=== PATIENT | female | born 1935 | race Caucasian/White ===

== ENCOUNTER 2021-09-04 15:50 | Inpatient (IN) | payer MEDICARE ==
[2021-09-04 17:22] LABS: #Basophils 0.1 thou/uL (0.0-0.2); #Lymphocytes 1.4 thou/uL (1.20-3.40); #Monocytes 0.9 thou/uL (0.11-0.59); #Neutrophils 11.7 thou/uL (1.40-6.50); %Basophils 0.5 % (0.0-1.0); %Eosinophils 0.4 % (0.0-10.0); %Lymphocytes 10.2 % (21.0-51.0); %Neutrophils 82.9 % (42.0-75.0); Mean Corpuscular Hemoglobin 30.8 pg (27.0-31.0); Mean Corpuscular Volume 96.4 fL (78.0-98.0); Mean Platelet Volume 7.3 fL (7.4-10.4); Platelet Count 244 thou/uL (130-400); RBC Distribution Width 11.8 % (11.5-14.5); Red Blood Cell (RBC) Count 4.53 mill/uL (4.20-5.40); White Blood Cell (WBC) Count 14.1 thou/uL (4.8-10.8)
[2021-09-04 17:48] LABS: ALT (SGPT) 16 U/L (8-55); AST (SGOT) 29 U/L (5-34); Albumin 4.5 g/dL (3.4-4.8); Alkaline Phosphatase 67 U/L (40-110); Anion Gap 16 mmol/L (10-20); BUN (Urea Nitrogen) 26 mg/dL (9.8-20.1); Bilirubin, Total 0.4 mg/dL (0.2-1.2); CK (CPK) 98 U/L (29-168); Calc. Creatinine Clearance 0 mL/min (70-130); Calcium 10.2 mg/dL (7.8-10.44); Carbon Dioxide 25 mmol/L (23-31); Chloride 104 mmol/L (98-107); Globulin 3.1 g/dL (2.4-3.5); Glucose 154 mg/dL (83-110); Potassium 4.6 mmol/L (3.5-5.1); Protein, Total 7.6 g/dL (5.8-8.1); Sodium 140 mmol/L (136-145)
[2021-09-04] MEDS ORDERED: Ondansetron PF 4 MG/2 ML Vial IVP PRN (20:24)
[2021-09-04] MEDS ORDERED: Promethazine HCl 25 MG/ML VIAL IM PRN (20:25)
[2021-09-04] MEDS ORDERED: Cyclobenzaprine 10 MG TAB PO PRN (20:27)
[2021-09-04] MEDS ORDERED: traMADol HCl 50 MG TAB PO PRN (20:27)
[2021-09-04] MEDS ORDERED: Acetaminophen 325 MG TAB PO SCH (20:30)
[2021-09-04] MEDS ORDERED: Morphine 4 MG/ML VIAL SLOW IVP PRN (21:23)
[2021-09-04] MEDS: Sodium Chloride 0.9% 1,000 ML IV SCH (22:15)
[2021-09-04] MEDS: Famotidine 20 MG TAB PO SCH (23:00)
[2021-09-04] MEDS: Ibuprofen 200 MG TAB PO SCH (23:19)
[2021-09-04] MEDS: Gabapentin 300 MG CAP PO SCH (23:19)
[2021-09-04] MEDS: Heparin 5,000 UNITS/ML VIAL SC SCH (23:20)
[2021-09-04] MEDS: Senokot S 8.6-50 MG TAB PO SCH (23:22)
[2021-09-05] MEDS: Acetaminophen 500 MG TAB PO SCH ×5 (00:51→23:52)
[2021-09-05] MEDS: traMADol HCl 50 MG TAB PO SCH ×2 (00:51→06:21)
[2021-09-05 03:35] VITALS: BMI 26.5
[2021-09-05 05:45] LABS: #Eosinphils 0.2 thou/uL (0.0-0.7); #Lymphocytes 2.8 thou/uL (1.20-3.40); #Monocytes 1.2 thou/uL (0.11-0.59); #Neutrophils 5.5 thou/uL (1.40-6.50); %Basophils 0.5 % (0.0-1.0); %Eosinophils 1.8 % (0.0-10.0); %Lymphocytes 28.3 % (21.0-51.0); %Monocytes 12.6 % (0.0-10.0); %Neutrophils 56.8 % (42.0-75.0); Hemoglobin 12.1 g/dL (12.0-16.0); Mean Corpuscular HGB CONC 32.1 g/dL (32.0-36.0); Mean Corpuscular Hemoglobin 30.7 pg (27.0-31.0); Mean Corpuscular Volume 95.9 fL (78.0-98.0); Mean Platelet Volume 7.6 fL (7.4-10.4); Platelet Count 222 thou/uL (130-400); RBC Distribution Width 11.8 % (11.5-14.5); Red Blood Cell (RBC) Count 3.95 mill/uL (4.20-5.40); White Blood Cell (WBC) Count 9.7 thou/uL (4.8-10.8)
[2021-09-05 06:00] LABS: Anion Gap 12 mmol/L (10-20); BUN (Urea Nitrogen) 20 mg/dL (9.8-20.1); Calc. Creatinine Clearance 41 mL/min (70-130); Calcium 9.4 mg/dL (7.8-10.44); Carbon Dioxide 24 mmol/L (23-31); Chloride 106 mmol/L (98-107); Glucose 106 mg/dL (83-110); Potassium 4.1 mmol/L (3.5-5.1); Sodium 138 mmol/L (136-145)
[2021-09-05 06:02] LABS: Phosphorus 2.7 mg/dL (2.3-4.7)
[2021-09-05] MEDS: Sodium Chloride 0.9% 1,000 ML IV SCH (06:21)
[2021-09-05] MEDS: Ibuprofen 200 MG TAB PO SCH (06:21)
[2021-09-05 06:42] LABS: Bacteria/HPF None Seen HPF (None Seen); Bilirubin Negative (Negative); Blood, Urine Negative (Negative); Clarity Clear (Clear); Glucose, Urine (Dipstick) 50 mg/dL (Negative); Ketone, Urine Negative (Negative); Leukocyte Negative Leu/uL (Negative); Nitrite Negative (Negative); Protein, Urine (Dipstick) Negative (Neg-Trace); RBC/HPF 0-3 HPF (0-3); Specific Gravity, Urine 1.011 (1.002-1.036); Squamous Epithelial 0-3 HPF (0-3); Urobilinogen Normal mg/dL (Less than 2); WBC/HPF 0-3 HPF (0-3)
[2021-09-05 06:43] LABS: Urine Culture Reflex No No
[2021-09-05] MEDS: Gabapentin 300 MG CAP PO SCH ×3 (07:46→20:58)
[2021-09-05] MEDS: Heparin 5,000 UNITS/ML VIAL SC SCH ×3 (07:47→21:02)
[2021-09-05] MEDS: Polyethylene Glycol 3350 17 GM Packet PO SCH (07:47)
[2021-09-05] MEDS: Senokot S 8.6-50 MG TAB PO SCH ×2 (07:47→20:59)
[2021-09-05] MEDS ORDERED: Ibuprofen 200 MG TAB PO PRN (11:34)
[2021-09-05] MEDS: Famotidine 20 MG TAB PO SCH (20:58)
[2021-09-06] MEDS: Acetaminophen 500 MG TAB PO SCH ×4 (05:21→20:39)
[2021-09-06] MEDS: Gabapentin 300 MG CAP PO SCH ×3 (07:53→20:39)
[2021-09-06] MEDS: Senokot S 8.6-50 MG TAB PO SCH ×2 (07:54→20:39)
[2021-09-06] MEDS: Polyethylene Glycol 3350 17 GM Packet PO SCH (07:54)
[2021-09-06] MEDS: Heparin 5,000 UNITS/ML VIAL SC SCH ×3 (07:54→20:39)
[2021-09-06] MEDS: Multivit, Therapeutic 1 TAB PO SCH (08:28)
[2021-09-06] MEDS ORDERED: hydrALAZINE 20 MG/ML VIAL SLOW IVP PRN (10:12)
[2021-09-06] MEDS ORDERED: Lisinopril 10 MG TAB PO SCH (10:15)
[2021-09-06] MEDS: Famotidine 20 MG TAB PO SCH (20:39)
[2021-09-07] MEDS: Acetaminophen 500 MG TAB PO SCH ×4 (07:15→23:59)
[2021-09-07] MEDS: Senokot S 8.6-50 MG TAB PO SCH ×2 (10:18→20:38)
[2021-09-07] MEDS: Lisinopril 10 MG TAB PO SCH (10:25)
[2021-09-07] MEDS: Gabapentin 300 MG CAP PO SCH ×3 (10:25→20:38)
[2021-09-07] MEDS: Heparin 5,000 UNITS/ML VIAL SC SCH ×3 (10:25→20:38)
[2021-09-07] MEDS: Polyethylene Glycol 3350 17 GM Packet PO SCH (10:26)
[2021-09-07] MEDS: Multivit, Therapeutic 1 TAB PO SCH (10:26)
[2021-09-07] MEDS: Famotidine 20 MG TAB PO SCH (20:38)
[2021-09-07] MEDS ORDERED: Milk Of Magnesia 30 ML UDCUP PO PRN (20:51)
[2021-09-08] MEDS: Acetaminophen 500 MG TAB PO SCH ×2 (05:47→15:34)
[2021-09-08 06:23] LABS: Anion Gap 12 mmol/L (10-20); BUN (Urea Nitrogen) 25 mg/dL (9.8-20.1); Calc. Creatinine Clearance 39 mL/min (70-130); Calcium 9.9 mg/dL (7.8-10.44); Carbon Dioxide 25 mmol/L (23-31); Chloride 104 mmol/L (98-107); Glucose 116 mg/dL (83-110); Magnesium 2.2 mg/dL (1.6-2.6); Phosphorus 3.2 mg/dL (2.3-4.7); Potassium 3.9 mmol/L (3.5-5.1); Sodium 137 mmol/L (136-145)
[2021-09-08] MEDS ORDERED: Bisacodyl 10 MG SUPP PR PRN (07:00)
[2021-09-08] MEDS ORDERED: Enoxaparin Sodium 40 MG/0.4 ML SYRINGE SC SCH (09:00)
[2021-09-08] MEDS: Gabapentin 300 MG CAP PO SCH (15:32)
[2021-09-08] MEDS: Lisinopril 10 MG TAB PO SCH (15:33)
[2021-09-08] MEDS: Heparin 5,000 UNITS/ML VIAL SC SCH (15:33)
[2021-09-08] MEDS: Multivit, Therapeutic 1 TAB PO SCH (15:34)
[2021-09-08] MEDS: Senokot S 8.6-50 MG TAB PO SCH (15:34)
[2021-09-08] MEDS: Polyethylene Glycol 3350 17 GM Packet PO SCH (15:34)
[2021-09-08 15:55] VITALS: BP 176/93; TEMP 98
== END 2021-09-08 16:09 | disposition home health service (06) | DRG 536 ==
LOC: ERS 15:50 → SJJU 20:24
PROVIDERS: ADMIT Surgery; ATTEND Surgery
DX: S32.591A Other specified fracture of right pubis, initial encounter for closed fracture (principal); N17.9 Acute kidney failure, unspecified; I10 Essential (primary) hypertension; W18.39XA Other fall on same level, initial encounter; Y92.008 Other place in unspecified non-institutional (private) residence as the place of occurrence of the external cause; Z86.73 Personal history of transient ischemic attack (TIA), and cerebral infarction without residual deficits; Z82.0 Family history of epilepsy and other diseases of the nervous system; Z82.49 Family history of ischemic heart disease and other diseases of the circulatory system; Z90.710 Acquired absence of both cervix and uterus; Z79.899 Other long term (current) drug therapy; Z82.5 Family history of asthma and other chronic lower respiratory diseases
CPT/HCPCS: 36415; 70450; 72125; 72170; 80048; 80053; 81001; 82550; 83735; 84100; 85025; 93005; G0390; J7050